=== PATIENT | female | born 1960 | race Caucasian/White ===

== ENCOUNTER 2019-03-12 08:14 | Emergency (ER) | payer BC ==
--- NOTE | 2019-03-12 08:39 | ED ---
Skin Complaint - HPI Summary HPI Summary: This patient is a 58 year old F presenting to [facility] with a chief complaint of a tick on her back which was noticed this morning when she got out of the shower. Had a tick on Monday night that was previously removed. The patient reports being administered doxycycline last time she visited the ED. The Pt reports soreness around the area with the tick. She denies any chills, fevers, rashes, and joint pain. The patient denies any pain. Symptoms aggravated by nothing. Symptoms alleviated by nothing. Patient has been working in the yard on 03/06/19 and 03/07/19 during the evening. - History of Current Complaint Chief Complaint: EDAnimalBite Time Seen by Provider: 03/12/19 08:23 Stated Complaint: TICK ON BACK PER PT Onset/Duration: Started Days Ago - patient was gardening on monday and evening., Still Present - tick was on her upper mid back Skin Exposure Onset/Duration: Days Ago - 03/06/19 or 03/07/19 Current Severity: None Pain Intensity: 0 Pain Scale Used: 0-10 Numeric Skin Location: Other: - Upper mid back Aggravating Symptom(s): Nothing Alleviating Symptom(s): Nothing Associated Signs & Symptoms: Negative - chills, fevers, rashes, and joint pain Related History: Insect Bite/Sting - Tick on mid upper back - Allergy/Home Medications Allergies/Adverse Reactions: Allergies Allergy/AdvReac Type Severity Reaction Status Date / Time No Known Allergies Allergy Verified 06/23/15 18:17 PMH/Surg Hx/FS Hx/Imm Hx Previously Healthy: No Endocrine/Hematology History: Denies: Hx Diabetes Cardiovascular History: Denies: Hx Hypertension Sensory History: Reports: Hx Contacts or Glasses Opthamlomology History: Reports: Hx Contacts or Glasses - Cancer History Hx Chemotherapy: No Hx Radiation Therapy: No - Surgical History Surgery Procedure, Year, and Place: ACL REPAIR Infectious Disease History: No Infectious Disease History: Denies: Traveled Outside the [place] in Last 30 Days - Family History Known Family History: Negative: Hypertension, Diabetes - Social History Alcohol Use: Weekly Alcohol Amount: 1 DRINK/WEEK Hx Substance Use: No Substance Use Type: Reports: None Hx Tobacco Use: No Smoking Status (MU): Never Smoked Tobacco Review of Systems Negative: Fever, Chills Negative: Arthralgia Positive: Other - Positive: tick on her back. Negative: Rash All Other Systems Reviewed And Are Negative: Yes Physical Exam - Summary Physical Exam Summary: Appearance: well appearing, no pain distress Skin: warm, dry, reflects adequate perfusion, tick present medial to the right scapula. Head/face: normal Eyes: EOMI, JULIO C ENT: mucous membranes moist Neck: supple, non-tender Respiratory: CTA, breath sounds present Cardiovascular: RRR, pulses symmetrical Abdomen: non-tender, soft Bowel Sounds: present Musculoskeletal: normal, strength/ROM intact Neuro: normal, sensory motor intact, A&Ox3 Triage Information Reviewed: Yes Vital Signs On Initial Exam: Initial Vitals Temp Pulse Resp BP Pulse Ox 98.0 F 65 18 128/70 95 03/12/19 08:19 03/12/19 08:19 03/12/19 08:19 03/12/19 08:19 03/12/19 08:19 Vital Signs Reviewed: Yes Procedures - Procedure Summary Procedure Summary: Foreign body removal: A tick was identified medial to her right scapula with a tick removal device at 0845. The tick was intact upon removal. No bleeding, no dressing required. Diagnostics - Vital Signs Vital Signs Temp Pulse Resp BP Pulse Ox 03/12/19 08:19 98.0 F 65 18 128/70 95 - Laboratory Lab Statement: Any lab studies that have been ordered have been reviewed, and results considered in the medical decision making process. Course/Dx - Course Course Of Treatment: Tick removed intact. Doxycycline prophylactic dose given here. No evidence for Lyme at this point. - Diagnoses Provider Diagnoses: Tick bite of back, Tick bite with subsequent removal of tick Discharge - Sign-Out/Discharge Documenting (check all that apply): Patient Departure - home Patient Received Moderate/Deep Sedation with Procedure: No - Discharge Plan Condition: Improved Disposition: HOME Patient Education Materials: Tick Bite (ED) Referrals: Ronan Miles MD [Primary Care Provider] - Additional Instructions: Follow up with your doctor for any illness including joint aches, body aches, facial droop, fever, rash or other concerns. See handout provided. - Billing Disposition and Condition Condition: IMPROVED Disposition: Home - Attestation Statements Document Initiated by Scribe: Yes Documenting Scribe: James Luciano Provider For Whom Scribe is Documenting (Include Credential): Israel Young MD Scribe Attestation: IJames, scribed for Israel Young MD on 03/12/19 at 0852. Scribe Documentation Reviewed: Yes Provider Attestation: The documentation as recorded by the jeannaibJames simon accurately reflects the service I personally performed and the decisions made by , Israel Young MD Status of Scribe Document: Viewed
[2019-03-12] MEDS ORDERED: DOXYcycline CAP(*) 100 MG PO ONE (08:40)
[2019-03-12 08:51] VITALS: BP 00/0
== END 2019-03-12 08:50 | disposition home or self-care (01) ==
LOC: ED 08:14
DX: S20.469A Insect bite (nonvenomous) of unspecified back wall of thorax, initial encounter (principal); W57.XXXA Bitten or stung by nonvenomous insect and other nonvenomous arthropods, initial encounter; Y92.9 Unspecified place or not applicable
CPT/HCPCS: 99281; A9270-GY